=== PATIENT | female | born 1970 | race Caucasian/White ===

== ENCOUNTER 2018-09-30 09:54 | Emergency (ER) | payer OTHER ==
[~2018-09-30] VITALS: Ht 152.4 cm; Wt 64.4 kg
[~2018-09-30 09:54] MED LIST: AZITHROMYCIN500 M1 PO; LAC PO
[2018-09-30 10:00] VITALS: Ht 152.4 cm; Wt 64.4 kg
[2018-09-30 10:51] VITALS: BP 128/71
== END 2018-09-30 10:51 | disposition home or self-care (01) ==
LOC: ED 09:54
DX: S71.111A Laceration without foreign body, right thigh, initial encounter (principal); W20.8XXA Other cause of strike by thrown, projected or falling object, initial encounter; Y93.89 Activity, other specified; Y92.89 Other specified places as the place of occurrence of the external cause; Y99.8 Other external cause status
CPT/HCPCS: 90715; J2001